=== PATIENT | female | born 1975 | race Two or more races ===

== ENCOUNTER 2021-10-16 06:05 | Day surgery (SDC) | payer OTHER ==
[~2021-10-16] VITALS: Ht 12.7 cm; Wt 72.6 kg
[~2021-10-16 06:05] MED LIST: COZAAR50 MG PO; TAMOXIFEN CITRA20 MG PO
== END 2021-10-16 20:15 | disposition home or self-care (01) ==
LOC: CIR.AMB 06:05
PROVIDERS: ATTEND Surgery
DX: D05.12 Intraductal carcinoma in situ of left breast (principal); N60.21 Fibroadenosis of right breast; R59.0 Localized enlarged lymph nodes; Z42.1 Encounter for breast reconstruction following mastectomy; Z20.822 Contact with and (suspected) exposure to COVID-19; I10 Essential (primary) hypertension
CPT/HCPCS: 19303; 19357; 38525; 78195; C1789

== ENCOUNTER 2022-04-16 06:00 | Day surgery (SDC) | payer OTHER ==
[~2022-04-16] VITALS: Ht 165.1 cm; Wt 71.7 kg
== END 2022-04-16 15:45 | disposition home or self-care (01) ==
LOC: CIR.AMB 06:00
PROVIDERS: ATTEND Plastic Surgery
DX: Z90.13 Acquired absence of bilateral breasts and nipples (principal); C50.412 Malignant neoplasm of upper-outer quadrant of left female breast; L90.5 Scar conditions and fibrosis of skin; N60.82 Other benign mammary dysplasias of left breast; L72.0 Epidermal cyst; I10 Essential (primary) hypertension; F17.210 Nicotine dependence, cigarettes, uncomplicated; Z20.822 Contact with and (suspected) exposure to COVID-19